=== PATIENT | female | born 1980 | race Caucasian/White ===

== ENCOUNTER 2016-05-18 16:23 | Inpatient (IN) | payer MEDICAID ==
[2016-05-18] MEDS ORDERED: IBUPROFEN 600 MG TABLET ONE (16:42)
[2016-05-18] MEDS ORDERED: IBUPROFEN 600 MG TABLET PO ONE (16:44)
[2016-05-18 17:39] LABS: Hematocrit 37.1 % (37.0-47.0); Hemoglobin 12.4 gm/dL (12.5-16.0); Mean Corpuscular Hemoglobin 27.7 pg (27-31); Mean Corpuscular Hgb Conc 33.4 g/dl (32-36); Mean Platelet Volume 9.4 fl (6.0-9.5); Platelet Count 290 K/mm3 (150-450); Red Blood Count 4.47 M/mm3 (4.2-5.4); Red Cell Distribution Width 14.2 % (11.5-14.0); White Blood Count 22.1 K/mm3 (4.0-10.5)
[2016-05-18 17:46] LABS: Total Cells Counted 100
[2016-05-18 17:52] LABS: Albumin * 2.8 gm/dl (3.4-5.0); Anion Gap 15.7 mmol/L (6.8-13.8); BUN/Creatinine Ratio 18.3 (9.0-21.6); Bilirubin, Total 0.4 mg/dL (0.0-1.1); Ca. Corrected For Albumin 9.7 mg/dL (8.4-10.2); Calcium * 9.1 mg/dL (7.9-10.9); Carbon Dioxide 25.9 mmol/L (24-32.6); Potassium 3.6 mmol/L (3.4-4.6)
[2016-05-18] MEDS ORDERED: NORMAL SALINE 1,000 ML IV ONE (18:03)
[2016-05-18 18:10] LABS: Lymphocyte 7 % (20-51); Monocyte 4 % (0-9); Neutrophil 89 % (42-75); Neutrophil # 19.7 K/mm3 (1.3-6.0); Platelet Estimate Normal (NORMAL); RBC Morphology Normal (NORMAL)
--- NOTE | 2016-05-18 18:10 | ERNOTE ---
Back Pain ER HPI Date of Service: 05/18/16 Time Seen by Provider: 05/18/16 17:51 Source: patient Exam Limitations: no limitations Immunizations: IMMUNIZATION HX Immunizations Up to Date Yes History of Influenza Vaccine No Allergies/Adverse Reactions: Allergies cyclobenzaprine [Cyclobenzaprine] Allergy (Verified 05/18/16 16:38) pseudoephedrine HCl [From Sudafed] Allergy (Verified 05/18/16 16:38) gittery Home Medications: HOME MEDICATIONS Aspirin [Aspirin EC] 500 mg PO BID 02/13/13 [Last Taken Unknown] Dextroamphetamine/Amphetamine [Adderall 20 mg Tablet] 20 mg PO BID 07/29/14 [ Last Taken Unknown] Clonazepam 1 mg PO HS 08/06/15 [Last Taken Unknown] Propranolol HCl [Inderal LA] 160 mg PO DAILY 08/06/15 [Last Taken Unknown] Ketorolac Tromethamine [Toradol] 10 mg PO Q6H PRN #20 tab 09/18/15 [Last Taken Unknown] Narrative: Pt. comes in with c/o back pain in her low back, upper back, and neck for five days that is worsening. Pt. denies any injury to back but states that she has had mild cough recently. Pt. states that she was unaware that she had a fever. Pt. states that weakness and malaise started today as well. Review of Systems - Review of Systems Constitutional: Present: weakness, fatigue, malaise. Absent: recent illness, fever, chills, weight loss EYE: Present: no symptoms reported ENT: Present: no symptoms reported Respiratory: Present: no symptoms reported. Absent: shortness of breath, cough , wheezing Cardiology: Present: no symptoms reported. Absent: chest pain, palpitations, edema Gastrointestinal/Abdominal: Present: no symptoms reported. Absent: nausea, vomiting, diarrhea Musculoskeletal: Present: back pain, neck pain Skin: Present: no symptoms reported Neurological: Present: no symptoms reported. Absent: headache, dizziness/light- headedness, numbness, tingling All Other Systems: All systems neg except as marked - Patient's Past Medical History Patient History - Medical: ADHD, Anxiety, Depression Patient History - Cardiac/Respiratory: Hypertension Patient History - Cancer: No Hx of Cancer Patient History - Surgical Procedures: Tubal Ligation - Social History Living Situations: home Alcohol Use: none Drug Use: none Physical Exam - Physical Exam General Appearance: Present: wd/wn, no apparent distress, lethargic Eye Exam: Normal inspection: bilateral, PERRL: bilateral, EOMI: bilateral Ears, Nose, Throat: Present: normal ENT inspection, hearing grossly normal, normal pharynx Neck: Present: limited range of motion - nuchal regidity, tender posterior midline. 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 Absent: pallor, skin rash ED Progress - Date and Time Seen: Date and Time: 05/18/16 18:09 Have a strong suspicion that pt. may have meningitis. 05/18/16 19:00 Opening and closing 13 with clear CSF fluid. 05/18/16 21:48 After LP pt. pain decreased without medications but pt. remains lethargic. Given CT scan results am concerned for legionella or Wegeners. Discussed case with Chelly and will admit to hospital for sepsis and pneumonia. - Results and Orders Patient's Lab Results:: I have reviewed the patient's lab results. - Vital Signs Patient's Vital Signs:: I have reviewed the patient's vital signs. Vital Signs: Vital Signs 05/18/16 05/18/16 16:31 16:56 Temperature 39.0 C H 38.6 C H Pulse Rate 135 H 136 H Respiratory 12 12 Rate Blood Pressure 122/82 122/82 O2 Sat by Pulse 92 93 Oximetry - X-Ray X-Ray #1 X-Ray: chest Interpretation: Reviewed by me X-ray Comments: The lungs are symmetrically inflated. There is a dense left retrocardiac consolidation. No pneumothorax or pleural effusion. The mediastinum, cardiac silhouette and pulmonary vascularity are within normal limits. No acute osseous findings IMPRESSION: Dense left retrocardiac consolidation, concerning for pneumonia. Recommend follow-up to resolution. - CT/Ultrasound CT/Ultrasound Narrative: CT abdomen1. Left lower lung consolidation, concerning for pneumonia. Recommend follow-up to resolution. As there is also nonspecific free fluid at the infralateral aspect of the right kidney, correlate for signs of a underlying nephritis that can also be seen complicating pneumonia such as Legionnaires' disease (this is felt to be less likely). A vasculitis such as granulomatosis with polyangiitis (formally known as Mateus's) cannot entirely be excluded. Alternatively, correlate for coexistent pyelonephritis. - Progress/Reassessment Chief Complaint: Back Pain Progress:: Unchanged Departure Clinical Impression: Pyelonephritis Sepsis Qualifiers: Sepsis type: sepsis due to unspecified organism Qualified Code(s): A41.9 - Sepsis, unspecified organism Pneumonia Qualifiers: Pneumonia type: due to unspecified organism Laterality: left Lung location: lower lobe of lung Qualified Code(s): J18.1 - Lobar pneumonia, unspecified organism - Departure Disposition: [facility] Condition: Serious Referrals: Dustin Van MD [Primary Care Provider] -
[2016-05-18] MEDS ORDERED: NORMAL SALINE 1,000 ML IV PRN (18:19)
[2016-05-18 18:28] LABS: Urine Bilirubin 1 mg/dl (NEGATIVE); Urine Blood 25 /ul (NEGATIVE); Urine Ketone Negative (NEGATIVE); Urine Nitrite Negative (NEGATIVE); Urine Protein 100 mg/dL (NEGATIVE); Urine Specific Gravity >=1.030 SP.GR. (1.005-1.010); Urine Urobilinogen Normal (NORMAL)
[2016-05-18 18:29] LABS: Urine Amorphous Sediment Moderate - 2+ (NONE-FEW); Urine Appearance Cloudy; Urine Bacteria 1+; Urine Color Yellow; Urine RBC 0-5 /hpf (0-5); Urine WBC None Seen /hpf (0-5)
[2016-05-18] MEDS ORDERED: HYDROmorphone HCL 1 MG/ML DISP.SYRIN IV ONE (18:57)
--- NOTE | 2016-05-18 18:58 | OR ---
Anesthesia Pre Procedure Eval Date of Service: 05/18/16 Pre Procedure Evaluation: Last Vital Signs Temp 38.6 C H 05/18/16 16:56 Pulse 136 H 05/18/16 16:56 Resp 12 05/18/16 16:56 BP 122/82 05/18/16 16:56 Pulse Ox 93 05/18/16 16:56 O2 Oxygen Delivery Method Room Air Anesthesia Pre Procedure Evaluation DATE: 05/18/2016. TIME: 1825. INDICATIONS: Fever, back and neck pain, malaise and fatigue. PAST MEDICAL HISTORY: This is a 35-year-old female in the emergency room with back and neck pain increased temperature, fatigue and malaise. EXAM: Current medications were reviewed with patient. ASSESSMENT OF MEDICAL STATUS: O.K. to proceed with ANESTHESIA PROCEDURE NOTE PLANNED PROCEDURE: Lumbar Puncture. Home Medications: HOME MEDICATIONS Aspirin [Aspirin EC] 500 mg PO BID 02/13/13 [Last Taken Unknown] Dextroamphetamine/Amphetamine [Adderall 20 mg Tablet] 20 mg PO BID 07/29/14 [ Last Taken Unknown] Clonazepam 1 mg PO HS 08/06/15 [Last Taken Unknown] Propranolol HCl [Inderal LA] 160 mg PO DAILY 08/06/15 [Last Taken Unknown] Ketorolac Tromethamine [Toradol] 10 mg PO Q6H PRN #20 tab 09/18/15 [Last Taken Unknown]
--- NOTE | 2016-05-18 18:59 | OR ---
Anesthesia Procedure Note - Anesthesia Procedure Note Date of Service: 05/18/16 Narrative: Vital Signs - Last Taken Temp 38.6 C H 05/18/16 16:56 Pulse 136 H 05/18/16 16:56 Resp 12 05/18/16 16:56 BP 122/82 05/18/16 16:56 Pulse Ox 93 05/18/16 16:56 O2 Oxygen Delivery Method Room Air 05/18/16 18:58 ANESTHESIA PROCEDURE NOTE Date of Procedure: 05/18/2016. Time of procedure: 1830. Performed by: Giuseppe Garrido CRNA Broadcasting Equipment Mechanic: None. Preprocedure diagnosis: Back and neck pain, fever, weakness and malaise. Post procedure diagnosis: Same. Procedure: Lumbar Puncture. Indications: This is a 35-year-old female in the emergency room in need of a lumbar puncture to rule out meningitis. Findings: Opening pressure = 13 mmHg Clossing pressure = 13 mmHg. Details of the procedure: After informed consent was obtained the patient was placed in the left lateral decubitus position. Duraprep was applied to the patients back. The patient was then draped in a sterile fasion. Lidocaine 1% was infiltrated to the skin and subcutaneous tissues at the intended target site. The subarachnoid scace was identified at the level of the L4-5 interspace using a 22-gauge Casillas spinal needle. Free flow of CSF was noted. Pressure measurements were obtained.. Four specimens were drawn and sent to lab. The spinal needle was removed intact. A Band-Aid was applied to the patient's back. EBL: Minimal. Fluids: N/A. Specimen: N/A. Post procedure condition: The patient tolerated the procedure well. No complications were noted. Thank you for this consultation. Giuseppe Garrido CRNA
[2016-05-18 19:26] LABS: CSF Appearance Clear (CLEAR); CSF Color Colorless (COLORLESS); CSF RBC 0 /uL (0-10); CSF WBC 0 /uL (0-10)
[2016-05-18 22:07] LABS: Cocaine Ur Negative (NEGATIVE); Urine Benzodiazepines Negative (NEGATIVE); Urine Opiates Negative (NEGATIVE); Urine PCP Negative (NEGATIVE); Urine THC Negative (NEGATIVE)
[2016-05-18 22:10] LABS: Urine Barbiturate Positive (NEGATIVE)
[2016-05-18] MEDS ORDERED: AZITHROMYCIN 500 MG in DEXTROSE 5 % IN WATER 250 ML IV SCH ×2 (23:30)
[2016-05-19] MEDS: HEPARIN SODIUM,PORCINE 5,000 UNITS/ML VIAL SC SCH ×3 (02:03→20:49)
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
[2016-05-19 06:18] LABS: Hemoglobin 10.9 gm/dL (12.5-16.0); Mean Corpuscular Hemoglobin 27.7 pg (27-31); Mean Platelet Volume 9.8 fl (6.0-9.5); Platelet Count 265 K/mm3 (150-450); Red Blood Count 3.93 M/mm3 (4.2-5.4); Red Cell Distribution Width 13.9 % (11.5-14.0)
[2016-05-19 06:23] LABS: Total Cells Counted 100
[2016-05-19 06:28] LABS: Anion Gap 11.5 mmol/L (6.8-13.8); BUN/Creatinine Ratio 20.3 (9.0-21.6); Calcium * 8.9 mg/dL (7.9-10.9); Carbon Dioxide 27.7 mmol/L (24-32.6); Estimated Creat Clear 93.7; Potassium 3.2 mmol/L (3.4-4.6)
[2016-05-19] MEDS ORDERED: IBUPROFEN 800 MG TABLET ONE (06:30)
[2016-05-19 07:03] LABS: Band 20 % (0-2.0); Dohle Bodies 1+; Immature Granulocyte 1 (0-1); Lymphocyte 3 % (20-51); Monocyte 1 % (0-9); Neutrophil 75 % (42-75); Platelet Estimate Normal (NORMAL)
[2016-05-19] MEDS: ASPIRIN 325 MG TABLET.DR PO SCH ×2 (08:42→20:49)
[2016-05-19] MEDS: Adderall 20 Mg Tablet PO SCH ×2 (08:42→20:50)
[2016-05-19] MEDS: POTASSIUM CHLORIDE 10 MEQ TABLET.SA PO SCH ×2 (08:42→16:35)
[2016-05-19] MEDS: IBUPROFEN 800 MG TABLET PO SCH ×2 (08:42→20:49)
[2016-05-19] MEDS: METOPROLOL SUCCINATE 100 MG TABLET.SA PO SCH (08:43)
[2016-05-19] MEDS: BUTALB/ACETAMINOPHEN/CAFFEINE 1 TAB TABLET PO PRN ×2 (08:44→16:35)
[2016-05-19] MEDS ORDERED: PROPRANOLOL HCL 80 MG CAPSULE.SA PO SCH (09:00)
[2016-05-19] MEDS: AZITHROMYCIN 500 MG in DEXTROSE 5 % IN WATER 250 ML IV SCH ×2 (09:30)
[2016-05-19] MEDS ORDERED: NICOTINE 21 MG PATC TD SCH (21:00)
[2016-05-19] MEDS ORDERED: clonazePAM 1 MG TABLET PO SCH (21:00)
[2016-05-20 06:06] LABS: Hematocrit 31.7 % (37.0-47.0); Hemoglobin 10.7 gm/dL (12.5-16.0); Mean Cell Volume 82.1 fl (78-100); Mean Corpuscular Hemoglobin 27.7 pg (27-31); Mean Corpuscular Hgb Conc 33.8 g/dl (32-36); Mean Platelet Volume 10.3 fl (6.0-9.5); Neutrophil # 6.7 K/mm3 (1.3-6.0); Neutrophil % 71.3 % (42-75.0); Platelet Count 284 K/mm3 (150-450); Red Blood Count 3.86 M/mm3 (4.2-5.4); Red Cell Distribution Width 13.8 % (11.5-14.0); White Blood Count 9.3 K/mm3 (4.0-10.5)
[2016-05-20 06:14] LABS: Anion Gap 13.6 mmol/L (6.8-13.8); Calcium * 8.6 mg/dL (7.9-10.9); Carbon Dioxide 25.5 mmol/L (24-32.6); Estimated Creat Clear 111.8; Potassium 3.1 mmol/L (3.4-4.6)
[2016-05-20] MEDS: METOPROLOL SUCCINATE 100 MG TABLET.SA PO SCH (09:05)
[2016-05-20] MEDS: IBUPROFEN 800 MG TABLET PO SCH (09:06)
[2016-05-20] MEDS: POTASSIUM CHLORIDE 20 MEQ TABLET.SA PO SCH ×2 (09:07→16:00)
[2016-05-20] MEDS: HEPARIN SODIUM,PORCINE 5,000 UNITS/ML VIAL SC SCH (09:09)
[2016-05-20] MEDS: Adderall 20 Mg Tablet PO SCH (09:09)
[2016-05-20] MEDS: ASPIRIN 325 MG TABLET.DR PO SCH (09:10)
[2016-05-20] MEDS: AZITHROMYCIN 500 MG in DEXTROSE 5 % IN WATER 250 ML IV SCH ×2 (09:23)
[2016-05-20] MEDS ORDERED: TUBERCULIN,PURIF.PROT.DERIV. 5 TU/0.1 ML SYRINGE ID ONE (11:00)
[2016-05-20 15:32] VITALS: BP 152/82
--- NOTE | 2016-05-20 15:38 | DS ---
Description of Stay: Both chest x-ray and abdominal CT noted left sided lower pneumonia. Cultures have thus far not grown anything. I do not believe anything in her abdomen has been the cause for her current problems, and there is no good evidence for UTI or pyelonephritis. She feels great today, and is almost certainly back to baseline. She is walking well without any trouble. She is eating well and her cough has virtually completely resolved. Prognosis is excellent. Procedures Performed: none Discharge Disposition: Home self care Disposition: Home self-care Condition: Good Discharge Activity: Activity as tolerated Discharge Diet: General/regular food Referrals: Dustin Van MD [Primary Care Provider] - Problem Oriented Discharge Instructions to Patient/Family: Community-Acquired Pneumonia, Adult, [id number] Additional Patient Instructions (free text): CXR in [address] Cunningham 1 week. Electrolyte blood test in 1 week. Prescriptions (Any new or edited meds): Cefuroxime Axetil [Ceftin] 500 mg PO BID #30 tab Metoprolol Succinate [Toprol Xl] 200 mg PO DAILY #30 tablet. Complete Home Medications List: Complete Home Medication List: Dextroamphetamine/Amphetamine [Adderall 20 mg Tablet] 20 mg PO BID 07/29/14 Clonazepam 1 mg PO HS 08/06/15 Butalb/Acetaminophen/Caffeine [Zebutal 50-325-40 mg Capsule] 1 each PO Q4H PRN 05/19/16 Aspirin [Aspirin Enteric Coated] 325 mg PO BID tablet. 05/20/16 Cefuroxime Axetil [Ceftin] 500 mg PO BID #30 tab 05/20/16 Metoprolol Succinate [Toprol Xl] 200 mg PO DAILY #30 tablet.sa 05/20/16
== END 2016-05-20 17:59 | disposition home or self-care (01) | DRG 871 ==
LOC: ER 16:23 → MS 21:48
PROVIDERS: ADMIT Nurse Practitioner; ATTEND Allergy & Immunology
DX: A41.9 Sepsis, unspecified organism (principal); J18.9 Pneumonia, unspecified organism; E87.6 Hypokalemia; I10 Essential (primary) hypertension; F90.9 Attention-deficit hyperactivity disorder, unspecified type; F17.210 Nicotine dependence, cigarettes, uncomplicated; Z79.82 Long term (current) use of aspirin
CPT/HCPCS: 36415; 62270; 71020; 74177; 80048; 80053; 81001; 83605; 85007; 85025; 85652; 86140; 86703; 87040; 87070; 87086; 87400; 87449; 89051; 96365; 99283; G0479

== ENCOUNTER 2016-09-22 17:21 | Emergency (ER) | payer MEDICAID ==
--- OUTSIDE RECORDS SUMMARY | 2016-09-22 17:54 | XMS REPORT | Continuity of Care Document ---
:1980 Author Organization [facility] Address [address] [place] [address] Phone [phone] Care Team Providers Name Role Phone Dustin Cunningham Primary Care Provider [phone] Source Comments This disclosure is being made pursuant to the Care Everywhere program, applicable federal and state laws, and may not contain all informaitonavailable regarding this patient.[facility] ([facility]) Active Allergies and Adverse Reactions Allergen Noted Date Severity Reactions Comments Benadryl Decongestant 08/18/2015 Hallucinations Cyclobenzaprine 08/18/2015 Mental status changes "can't talk straight" Sudafed Cough 09/21/2015 OTHER Feels shaky Current Medications Prescription Sig. Disp. Refills Start Date End Date Status dextroamphetamine-ampheta Take 20 mg by mouth Active mine 20 mg tablet 2 times daily. ibuprofen 800 mg tablet Take 800 mg by Active mouth every 8 hours as needed. butalbital-acetaminophen- Take 1 tablet by Active caffeine 50-325-40 mg per mouth every 4 hours tablet as needed. propranolol 120 mg XR Take 120 mg by Active capsule mouth daily. clonazePAM 1 mg tablet Take 1 mg by mouth 0 08/03/2015 Active daily. HYDROcodone-acetaminophen 0 08/12/2015 Active 5-325 mg per tablet LIDOCAINE VISCOUS 2 % 1 07/08/2015 Active solution peniCILLIN V potassium 0 07/08/2015 Active 500 mg tablet aspirin 325 mg tablet Take 325 mg by Active mouth daily. lithium carbonate 300 mg Take 300 mg by 1 08/27/2015 Active capsule mouth 2 times daily. Active Problems Problem Noted Date Caries 08/18/2015 Social History Tobacco Use Types Packs/Day Years Used Date Current Every Day Smoker Cigarettes 1 25 Smokeless Tobacco: Never Used Tobacco Cessation:Ready to Quit: No; Counseling Given: Yes Comments: Alcohol Use Drinks/Week oz/Week Comments Yes Last Filed Vital Signs Vital Sign Reading Time Taken Blood Pressure 184/114 09/21/2015 12:35 PM CDT Pulse 65 09/21/2015 12:35 PM CDT Temperature 36.4 C (97.5 F) 09/21/2015 12:35 PM CDT Respiratory Rate - - Height 1.651 m (5' 5") 09/21/2015 12:35 PM CDT Weight 70.3 kg (154 lb 15.7 oz) 09/21/2015 12:35 PM CDT Body Mass Index 25.79 09/21/2015 12:35 PM CDT Oxygen Saturation 100% 09/21/2015 12:35 PM CDT Plan of Care Health Maintenance Due Date Last Done Comments Hepatitis B Vaccine (1 of 3 - Primary Series) 1980 Tdap Vaccine 1989 Lipid Disorder Screening 1996 MMR Vaccine 1996 Td Vaccine 1996 Pneumococcal Vaccine (1 of 1 - PPSV23) 1997 Cervical Cancer Screening 2008 Influenza Vaccine: Seasonal (#1) 12/07/2015 Results from Last 3 Months Not on file
[2016-09-22] MEDS ORDERED: PENICILLIN G BENZATHINE 2 ML SYRG IM ONE ×2 (18:07→18:22)
--- NOTE | 2016-09-22 18:11 | ERNOTE ---
ENT HPI Date of Service: 09/22/16 Presenting Symptoms: dental pain Time Seen by Provider: 09/22/16 17:39 Source: patient - Immun/Allergies/Home Medications Immunizations: IMMUNIZATION HX Immunizations Up to Date No History of Influenza Vaccine No Hx Pneumococcal Vaccination No Allergies/Adverse Reactions: Allergies Allergy/AdvReac Type Severity Reaction Status Date / Time cyclobenzaprine Allergy Verified 09/22/16 17:36 [Cyclobenzaprine] pseudoephedrine HCl Allergy gittery Verified 09/22/16 17:36 [From Sudafed] Home Medications: HOME MEDICATIONS Dextroamphetamine/Amphetamine [Adderall 20 mg Tablet] 20 mg PO BID 07/29/14 [ Last Taken Unknown] Clonazepam 1 mg PO HS 08/06/15 [Last Taken Unknown] Butalb/Acetaminophen/Caffeine [Zebutal 50-325-40 mg Capsule] 1 each PO Q4H PRN 05/19/16 [Last Taken Unknown] Aspirin [Aspirin Enteric Coated] 325 mg PO BID tablet. 05/20/16 [Last Taken Unknown] Metoprolol Succinate [Toprol Xl] 200 mg PO DAILY #30 tablet.sa 05/20/16 [Last Taken Unknown] - History of Present Illness Narrative: 35 year old female presents to the ED with dental pain. Date (Duration): 09/22/16 Severity: Present: mild ENT Location: Present: dental Prearrival Treatment: Present: no prearrival treatment Modifying Factors - Improves: Reports: nothing Modifying Factors - Worsens: Reports: nothing Associated Symptoms - ENT: Reports: facial pain/swelling, tooth pain Review of Systems - Review of Systems Constitutional: Present: no symptoms reported. Absent: fever, chills - Patient's Past Medical History Patient History - Medical: ADHD, Other Patient History - Cardiac/Respiratory: No pertinent hx Patient History - Cancer: No Hx of Cancer Patient History - Surgical Procedures: Tubal Ligation Patient History - Other: None LMP (Calendar): 05/03/16 - Family History Father Family History - Medical: No pertinent hx Family History - Cardiac/Respiratory: Hypertension, Other Mother Family History - Medical: No pertinent hx Family History - Cardiac/Respiratory: No pertinent hx - Social History Living Situations: home Abuse History: No History of abuse Psych History: No pertinent hx Have you smoked in the past 12 months: Yes Alcohol Use: none Drug Use: none - Immunizations Immunizations Up to Date: No Hx Pneumococcal Vaccination: No History of Influenza Vaccine: No Physical Exam - Physical Exam Narrative: patient has dental carries to her teeth. no swelling observed or redness. patient speaking very fast and unable to understand her. patient repeating her self several times during exam. very jumpy and excitable. I highly suspect she may be on some form of drugs. General Appearance: Present: wd/wn, no apparent distress Eye Exam: Normal inspection: bilateral Ears, Nose, Throat: Present: normal ENT inspection Neck: Present: normal inspection, nontender Respiratory: Present: no respiratory distress, normal breath sounds, no accessory muscle use, chest nontender, lungs clear Cardiovascular/Chest: Present: regular rate, rhythm, normal peripheral pulses Peripheral Pulses: N=norm/S=strong/W=weak/B=bound/A=absent: Radial (R): Normal, Radial (L): Normal Gastrointestinal/Abdominal: Present: normal bowel sounds, soft Extremity Exam: Present: normal inspection, normal range of motion, no edema Neurological Exam: Present: alert, oriented Skin Exam: Present: normal color, warm/dry Lymphatic Exam: Present: no adenopathy ED Progress - Date and Time Seen: Date and Time: 09/22/16 19:14 patient refused treatment for her BP and pain medication, signed out AMA - Vital Signs Patient's Vital Signs:: I have reviewed the patient's vital signs. Vital Signs: Vital Signs 09/22/16 17:32 Temperature 36.4 C L Pulse Rate 100 Respiratory 14 Rate Blood Pressure 193/118 O2 Sat by Pulse 100 Oximetry - Progress/Reassessment Chief Complaint: Dental Problem Plan - Plan Plan: patient left AMA and refused to take medication for her elevated BP. Departure Clinical Impression: Dental caries - Departure Disposition: Against medical advice Condition: Stable Referrals: Dustin Van MD [Primary Care Provider] -
[2016-09-22] MEDS ORDERED: CLONIDINE HCL 0.1 MG TABLET PO ONE (18:53)
[2016-09-22] MEDS ORDERED: IBUPROFEN 400 MG TABLET PO ONE (18:54)
[2016-09-22 18:59] VITALS: BP 196/116
[2016-09-22] MEDS ORDERED: IBUPROFEN 400 MG TABLET ONE (19:06)
[2016-09-22] MEDS ORDERED: CLONIDINE HCL 0.1 MG TABLET ONE (19:06)
[2016-09-22 19:30] LABS: Cocaine Ur Negative (NEGATIVE); Urine Barbiturate Negative (NEGATIVE); Urine Benzodiazepines Negative (NEGATIVE); Urine PCP Negative (NEGATIVE); Urine THC Negative (NEGATIVE)
[2016-09-22 19:31] LABS: Urine Opiates Positive (NEGATIVE)
== END 2016-09-22 19:09 | disposition left against medical advice (07) ==
LOC: ER 17:21
DX: K02.9 Dental caries, unspecified (principal); Z53.29 Procedure and treatment not carried out because of patient's decision for other reasons

== ENCOUNTER 2017-05-11 18:45 | Emergency (ER) | payer SELFPAY ==
[2017-05-11 19:01] VITALS: BP 188/116
--- NOTE | 2017-05-11 19:21 | ERNOTE ---
ENT HPI Date of Service: 05/11/17 Presenting Symptoms: other - Eyelid swelling Time Seen by Provider: 05/11/17 19:06 Source: patient, RN notes reviewed Exam Limitations: no limitations - Immun/Allergies/Home Medications Immunizations: IMMUNIZATION HX Immunizations Up to Date Yes History of Influenza Vaccine Yes Hx Pneumococcal Vaccination No Allergies/Adverse Reactions: Allergies Allergy/AdvReac Type Severity Reaction Status Date / Time cyclobenzaprine Allergy Verified 05/11/17 19:01 [Cyclobenzaprine] pseudoephedrine HCl Allergy gittery Verified 05/11/17 19:01 [From Sudafed] Home Medications: HOME MEDICATIONS Dextroamphetamine/Amphetamine [Adderall 20 mg Tablet] 20 mg PO BID 07/29/14 [ Last Taken Unknown] Aspirin [Aspirin Enteric Coated] 325 mg PO BID tablet. 05/20/16 [Last Taken Unknown] - History of Present Illness Narrative: Caroline is a 36 year old female who presents with swelling in her right upper eyelid that began 2 days ago while she was in a friend's garage. She has taken Benadryl without improvement. She denies any injury or feeling that there is something in her eye. She does not wear contact lenses. She reports that this happened to her before but resolved spontaneously after a day. ENT Location: Present: eye (R) Prearrival Treatment: Present: over the counter meds Prior Treament: Reports: similar symptoms before. Denies: recently seen Review of Systems - Review of Systems Constitutional: Absent: recent illness, fever, chills, malaise EYE: Present: tearing. Absent: eye pain, eye discharge, vision changes ENT: Absent: ear pain, nose congestion, nasal drainage, sore throat Respiratory: Absent: shortness of breath, cough Cardiology: Present: no symptoms reported Gastrointestinal/Abdominal: Absent: nausea, vomiting Genitourinary: Present: no symptoms reported Musculoskeletal: Absent: muscle pain, neck pain Skin: Absent: rash, lesions Neurological: Absent: headache, dizziness/light-headedness Endocrine: Present: no symptoms reported Hematologic/Lymphatic: Present: no symptoms reported Psych: Present: no symptoms reported - Patient's Past Medical History Patient History - Medical: ADHD, Other Patient History - Cardiac/Respiratory: No pertinent hx, Hypertension Patient History - Cancer: No Hx of Cancer Patient History - Surgical Procedures: Tubal Ligation Patient History - Other: None - Family History Father Family History - Medical: No pertinent hx Family History - Cardiac/Respiratory: Hypertension, Other Mother Family History - Medical: No pertinent hx Family History - Cardiac/Respiratory: No pertinent hx - Social History Living Situations: home Abuse History: No History of abuse Psych History: No pertinent hx Smoking Status: Current every day smoker Have you smoked in the past 12 months: Yes Do you dip or chew tobacco: No Alcohol Use: rarely Drug Use: none - Immunizations Immunizations Up to Date: Yes Hx Pneumococcal Vaccination: No History of Influenza Vaccine: Yes Physical Exam - Physical Exam General Appearance: Present: wd/wn, alert, no apparent distress Head Exam: Present: swelling - Right upper eyelid. Absent: tenderness Eye Exam: PERRL: bilateral, EOMI: bilateral, Other: right - Right upper eyelid edematous, no redness or inflammation Ears, Nose, Throat: Present: normal ENT inspection, normal pharynx Neck: Present: normal inspection, nontender, supple Respiratory: Present: no respiratory distress, normal breath sounds, no accessory muscle use, lungs clear Cardiovascular/Chest: Present: regular rate, rhythm, no murmur Extremity Exam: Present: normal inspection, normal range of motion, no edema Neurological Exam: Present: alert, oriented, normal mood/affect, no motor/ sensory deficits Skin Exam: Present: normal color, warm/dry ED Progress - Vital Signs Patient's Vital Signs:: I have reviewed the patient's vital signs. Vital Signs: Vital Signs 05/11/17 18:55 Temperature 36.7 C Pulse Rate 121 H Respiratory 16 Rate Blood Pressure 188/116 O2 Sat by Pulse 99 Oximetry - Progress/Reassessment Chief Complaint: Eye Injury/Trauma Progress:: Unchanged Departure Clinical Impression: Edema of eyelid Qualifiers: Laterality: right Qualified Code(s): H02.843 - Edema of right eye, unspecified eyelid Angioedema Qualifiers: Encounter type: initial encounter Qualified Code(s): T78.3XXA - Angioneurotic edema, initial encounter - Departure Disposition: Home Follow Up Needed Condition: Stable Instructions: Angioedema, [id number] Additional Instructions: Use cold compresses for swelling Continue Benadryl every 6 hours Follow up as needed Referrals: Dustin Van MD [Primary Care Provider] -
[2017-05-11] MEDS ORDERED: DEXAMETHASONE SODIUM PHOSPHATE 10 MG/ML VIAL ONE (19:25)
[2017-05-11] MEDS ORDERED: diphenhydrAMINE HCL 50 MG/ML VIAL ONE (19:25)
[2017-05-11] MEDS ORDERED: TRIAMCINOLONE ACETONIDE 40 MG/ML VIAL ONE (19:26)
[2017-05-11] MEDS: diphenhydrAMINE HCL 50 MG/ML VIAL IM ONE (19:34)
[2017-05-11] MEDS: DEXAMETHASONE SODIUM PHOSPHATE 10 MG/ML VIAL IM ONE (19:35)
[2017-05-11] MEDS: TRIAMCINOLONE ACETONIDE 40 MG/ML VIAL IM ONE (19:37)
== END 2017-05-11 19:46 | disposition home or self-care (01) ==
LOC: ER 18:45
DX: H02.841 Edema of right upper eyelid (principal); T78.3XXA Angioneurotic edema, initial encounter; F17.200 Nicotine dependence, unspecified, uncomplicated